=== PATIENT | male | born 1945 | race Caucasian/White ===

== ENCOUNTER 2017-08-25 13:16 | Day surgery (SDC) | payer OTHER ==
[~2017-08-25] VITALS: Ht 167.6 cm; Wt 134.0 kg
[~2017-08-25 13:16] MED LIST: ASPIR 8181 M1 PO; CORDARONE200 MG PO; ELIQUIS5 MG PO; LANTUS 10100 UNITS/ SC; LOPRESSOR25 MG PO; NOVOLOG PE100 UNITS/ SC; NOVOLOG100 UNIT/1 SC; RENVELA800 MG PO; ZYLOPRIM100 MG PO
[2017-08-25 14:01] LABS: POINT-OF-CARE METER ID UU14174212
[2017-08-25 14:18] VITALS: BP 190/81
[2017-08-25 15:17] LABS: ANION GAP 9 MEQ/L (2-14); CHLORIDE 97 MEQ/L (99-109); SAMPLE HEMOLYSIS CHECK 0; SAMPLE ICTERIC CHECK 0; SAMPLE LIPEMIA CHECK 0; SODIUM 138 MEQ/L (136-147)
[2017-08-25 15:22] LABS: GFR ESTIMATE (CALCULATED) 12 mL/min/; GLUCOSE 161 mg/dL (70-99); UREA NITROGEN (BUN) 41 mg/dL (9-23)
[2017-08-25 15:33] LABS: METH RESISTANT S AUREUS PCR NEGATIVE (NEGATIVE)
[2017-08-25 15:35] LABS: PROBE CHECK PASS; SPECIMEN PROCESSING CONTROL PASS
[2017-08-25 17:19] LABS: POINT-OF-CARE METER ID UU13113675
[2017-08-25 17:37] VITALS: BP 196/91
[2017-08-25 18:17] VITALS: BP 125/56
== END 2017-08-25 18:25 | disposition home or self-care (01) ==
LOC: SDC 13:16
PROVIDERS: Anesthesiology; Orthopaedic Surgery Hand Surgery
PROC: 0X6 Anatomical Regions, Upper Extremities, Detachment (ICD-10-PCS; principal; 2017-08-25)
DX: E11.52 Type 2 diabetes mellitus with diabetic peripheral angiopathy with gangrene (principal); I96 Gangrene, not elsewhere classified; I12.9 Hypertensive chronic kidney disease with stage 1 through stage 4 chronic kidney disease, or unspecified chronic kidney disease; E11.22 Type 2 diabetes mellitus with diabetic chronic kidney disease; N18.9 Chronic kidney disease, unspecified; Z79.4 Long term (current) use of insulin; Z89.512 Acquired absence of left leg below knee; Z89.421 Acquired absence of other right toe(s); Z79.82 Long term (current) use of aspirin; Z68.43 Body mass index [BMI] 50.0-59.9, adult; Z87.891 Personal history of nicotine dependence; I25.2 Old myocardial infarction; Z88.2 Allergy status to sulfonamides
CPT/HCPCS: 80048; 82948; 87641; 88305; 88311; J3370; S0020